=== PATIENT | female | born 1970 | race Two or more races ===

== ENCOUNTER 2020-10-30 14:38 | Emergency (ER) | payer OTHER ==
[~2020-10-30] VITALS: Ht 170.2 cm; Wt 70.0 kg
--- NOTE | 2020-10-30 15:42 | NUR ---
PT C/O LEFT FLANK PAIN THAT STARTED YESTERDAY. PT HAS HX OF KIDNEY INFECTION AND CLOT IN HER KIDNEY BEFORE. PT DENIES DYSURIA, FEVER, N/V OR ANY OTHER PHYCIAL COMPLAINT AT THIS TIME. PAIN 12/07.
[2020-10-30 16:15] LABS: BASOPHILS % (AUTO) 0 % (0-1); EOSINOPHILS % (AUTO) 2 % (1-7); LYMPHOCYTES % (AUTO) 24 % (22-44); MD NO; MEAN CORPUSCULAR HEMOGLOBIN 28.7 pg (27.0-34.8); MEAN CORPUSCULAR HGB CONC 33.3 g/dL (32.4-35.8); MEAN PLATELET VOLUME 8.9 fL (7.4-10.4); MONOCYTES % (AUTO) 6 % (2-9); NEUTROPHILS % (AUTO) 68 % (42-75); PLATELET COUNT 234 x10^3/uL (130-400); RED BLOOD COUNT 4.74 x10^6/uL (3.82-5.3); RED CELL DISTRIBUTION WIDTH 15.6 % (9.6-15.2)
[2020-10-30 16:17] LABS: MICROSCOPIC NOT IND
[2020-10-30 16:25] LABS: ALBUMIN 3.9 g/dL (3.4-5.0); ANION GAP 4 mmol/L (5-15); CALCIUM 9.1 mg/dL (8.5-10.1); CHLORIDE 109 mmol/L (98-107)
[2020-10-30] MEDS ORDERED: KETOROLAC 30 MG/1 ML ONE (16:45)
[2020-10-30] MEDS ORDERED: CYCLOBENZAPRINE 10 MG TABLET ONE (16:45)
[2020-10-30] MEDS ORDERED: CYCLOBENZAPRINE 10 MG TABLET PO ONE (17:00)
[2020-10-30] MEDS ORDERED: KETOROLAC 30 MG/1 ML IM ONE (17:00)
--- NOTE | 2020-10-30 17:27 | NUR ---
PT BACK IN ROOM FROM CT
--- NOTE | 2020-10-30 18:09 | NUR ---
PT REC'VD DISCHARGE INSTRUCTIONS AND EDUCATION. PT HAD NO FURTHER QUESTIONS. PT AMBULATED TO DC AREA, STEADY GAIT.
[2020-10-30 18:10] VITALS: BP 121/82
== END 2020-10-30 18:15 | disposition home or self-care (01) ==
LOC: ED 15:08
DX: M54.5 Low back pain (principal); R10.9 Unspecified abdominal pain
CPT/HCPCS: 36415; 74176; 80048; 81003; 82040; 85025; 96372; 99284; J1885